=== PATIENT | female | born 1980 | race Caucasian/White ===

== ENCOUNTER 2017-04-08 14:48 | Emergency (ER) | payer MEDICAID ==
[~2017-04-08] VITALS: Ht 167.6 cm; Wt 78.5 kg
[2017-04-08] MEDS ORDERED: BENAZEPRIL HCL10 MG ORAL (15:01)
[2017-04-08] MEDS ORDERED: METFORMIN HCL1000 M1 ORAL (15:01)
[2017-04-08] MEDS ORDERED: LORATADINE10 M3 PO (15:01)
[2017-04-08] MEDS ORDERED: GLIPIZIDE5 MG ORAL (15:01)
[2017-04-08] MEDS ORDERED: LANTUS SOL100 UNIT/1 SUBQ (15:01)
[2017-04-08] MEDS ORDERED: ASPIRIN81 MG ORAL (15:01)
[2017-04-08] MEDS ORDERED: PRAVASTATIN SOD20 M1 ORAL (15:01)
[2017-04-08] MEDS ORDERED: DAILY VITE1 EACH ORAL (15:01)
[2017-04-08 15:27] LABS: APPEARANCE,URINE CLOUDY; KETONES,URINE 1+ (NEGATIVE); LEUKOCYTE ESTERASE ,URINE 3+ (NEGATIVE); NITRITE,URINE POSITIVE (NEGATIVE); PH,URINE 6 (4.5-8.0); PROTEIN,URINE 2+ (NEGATIVE); UROBILINOGEN,URINE NORMAL MG/DL (0.0-1.0)
[2017-04-08] MEDS ORDERED: CIPROFLOXACIN500 M2 ORAL (15:41)
[2017-04-08 15:44] LABS: BACTERIA,URINE MODERATE /HPF; RBC,URINE TNTC /HPF (0 - 2); SQUAMOUS EPITHELIAL CELL,UR OCCASIONAL /LPF (NONE/OCC); WBC,URINE TNTC /HPF (0 - 2)
[2017-04-08] MEDS ORDERED: Bactrim DS (160mg/800mg) tab ORAL ONE (15:45)
[2017-04-08 16:00] VITALS: BP 129/79
--- NOTE | 2017-04-08 16:17 | Emergency Room Report ---
History of Present Illness General Chief Complaint: Nausea Source: Patient Present Illness HPI 36YOF with 2-3 days dysuria, polyuria and left flank pain Mild nausea without vomiting No fever/chills or diarrhea History of DM, HTN No sick contacts Allergies: Coded Allergies: No Known Allergies (Unverified , 04/08/17) Patient History Past Medical History: DM, HTN Past Surgical History: none Pertinent Family History: none Social History: Denies: smoking, alcohol use, drug use Now: No Immunizations: UTD Reviewed Nursing Documentation: PMH: Agreed, PSxH: Agreed Nursing Documentation-PMH Past Medical History: No History, Except For Hx Diabetes: Yes Review of Systems All Other Systems: negative except mentioned in HPI Physical Exam Vital Signs Date Time Temp Pulse Resp B/P (MAP) Pulse Ox O2 Delivery O2 Flow Rate FiO2 04/08/17 14:50 97.9 102 20 131/81 97 Room Air Sp02 EP Interpretation: reviewed, normal General Appearance: normal inspection, well appearing, no apparent distress, alert, GCS 15, non-toxic Head: normocephalic, atraumatic Eyes: bilateral eye PERRL, bilateral eye EOMI ENT: normal ENT inspection, hearing grossly normal, normal pharynx, no angioedema, normal voice, TMs + canals normal, uvula midline, moist mucus membranes Neck: normal inspection, full range of motion, supple, thyroid normal, no meningismus, no bony tend Respiratory: normal inspection, lungs clear, normal breath sounds, no rhonchi, no respiratory distress, no retraction, no accessory muscle use, no wheezing, speaking full sentences Cardiovascular #1: regular rate, rhythm, no edema, no JVD, normal capillary refill Gastrointestinal: normal inspection, normal bowel sounds, non tender, soft, no mass, no peritonitis, non-distended, no guarding, no hernia, no pulsatile mass Genitourinary: CVA tenderness (L), other - Very mild left CVAT Musculoskeletal: normal inspection, back normal, normal range of motion, no calf tenderness, pelvis stable, Bradley's Sign negative Neurologic: normal inspection, alert, oriented x3, responsive, 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, motor strength/tone normal, cerebellar normal, normal gait, speech normal Psychiatric: normal inspection, judgement/insight normal, mood/affect normal, no suicidal/homicidal ideation, no delusions Skin: normal inspection, normal color, no rash Lymphatic: normal inspection, no adenopathy Medical Decision Making Diagnostic Impression: Primary Impression: Pyelonephritis ER Course Urine preg neg Nitrite-positive UTI Mild left CVAT however well appearing, stable vitals, tolerating PO in ED after zofran, non-septic appearing Can be treated outpatient for likely acute pyelo Understands to return for worsening symptoms, unable to take PO Abx ER course: Patient has remained stable during ED stay. Patient is to be discharged to home. Prescriptions given are Cipro Patient is instructed to follow up with their primary care doctor within 5 days. Strict return precautions discussed with patient such as fever, chills, worsening/severe pain, nausea, vomiting, which may indicate severe illness. Patient verbalizes understanding and agrees with plan. Please note that this Emergency Department Report was dictated using [employer] pairer technology software, occasionally this can lead to erroneous entry secondary to interpretation by the dictation equipment Last Vital Signs Date Time Temp Pulse Resp B/P (MAP) Pulse Ox O2 Delivery O2 Flow Rate FiO2 04/08/17 16:00 97.9 97 20 129/79 97 Room Air Status: improved Disposition: HOME, SELF-CARE Condition: Improved Scripts Ciprofloxacin Hcl* (CIPROFLOXACIN HCL*) 500 Mg Tablet 500 MG ORAL Q12H for 7 Days, #14 TAB 0 Refills Prov: JOCE HERNANDEZ M.D. 04/08/17 Referrals: NON PHYSICIAN (PCP) Patient Instructions: Dysuria JOCE HERNANDEZ M.D. Apr 08, 2017 16:17
== END 2017-04-08 16:00 | disposition home or self-care (01) ==
LOC: EMR 15:05
DX: N12 Tubulo-interstitial nephritis, not specified as acute or chronic (principal); E11.9 Type 2 diabetes mellitus without complications; I10 Essential (primary) hypertension
CPT/HCPCS: 81003; 81025; 87086; 87181; 99283

== ENCOUNTER 2017-05-21 16:50 | Emergency (ER) | payer MEDICAID ==
[~2017-05-21] VITALS: Ht 167.6 cm; Wt 79.4 kg
[~2017-05-21 16:50] MED LIST: ASPIRIN81 MG ORAL; BENAZEPRIL HCL10 MG ORAL; CIPROFLOXACIN500 M2 ORAL; DAILY VITE1 EACH ORAL; GLIPIZIDE5 MG ORAL; LANTUS SOL100 UNIT/1 SUBQ; LORATADINE10 M3 PO; METFORMIN HCL1000 M1 ORAL; PRAVASTATIN SOD20 M1 ORAL
[2017-05-21 17:10] VITALS: BP 118/68
[2017-05-21] MEDS ORDERED: Ketorolac 60mg Inj IM ONE (17:30)
[2017-05-21 17:35] VITALS: BP 118/68
--- NOTE | 2017-05-21 18:16 | Emergency Room Report ---
History of Present Illness General Chief Complaint: Chest Pain Source: Patient Present Illness HPI 36-year-old female walks in with chest pain Had chest pain for 2 weeks, worse with movement, activity States chest pain his upper left chest. Nonradiating, no associated cough, fever chills. Pain not worse with inspiration History of HTN, DM No history of PE, DVT not on control No recent immobilization, surgery Went to outside ER 4 days ago Has results: Negative CXR, labwork and troponin also negative Was given Rx Motrin for costochondritis Patient went to [facility] yesterday Was given nitro for pain Took a couple times without relief of pain but had "really bad dizziness". Allergies: Coded Allergies: No Known Allergies (Unverified , 04/08/17) Patient History Past Medical History: DM, HTN Past Surgical History: none Pertinent Family History: none Social History: Denies: smoking, alcohol use, drug use Now: No Immunizations: UTD Reviewed Nursing Documentation: PMH: Agreed, PSxH: Agreed Nursing Documentation-PMH Past Medical History: No History, Except For Hx Diabetes: Yes Review of Systems All Other Systems: negative except mentioned in HPI Physical Exam Vital Signs Date Time Temp Pulse Resp B/P (MAP) Pulse Ox O2 Delivery O2 Flow Rate FiO2 05/21/17 16:59 97.5 82 18 126/72 99 Room Air Sp02 EP Interpretation: reviewed, normal General Appearance: normal inspection, well appearing, no apparent distress, alert, GCS 15, non-toxic Head: normocephalic, atraumatic Eyes: bilateral eye PERRL, bilateral eye EOMI ENT: normal ENT inspection, hearing grossly normal, normal pharynx, no angioedema, normal voice, TMs + canals normal, uvula midline, moist mucus membranes Neck: normal inspection, full range of motion, supple, thyroid normal, no meningismus, no bony tend Respiratory: normal inspection, lungs clear, normal breath sounds, no rhonchi, no respiratory distress, no retraction, no accessory muscle use, no wheezing, speaking full sentences, other - CP very reproducible, chest symmetrical Cardiovascular #1: regular rate, rhythm, no edema, no JVD, normal capillary refill Gastrointestinal: normal inspection, normal bowel sounds, non tender, soft, no mass, no peritonitis, non-distended, no guarding, no hernia, no pulsatile mass Genitourinary: no CVA tenderness Musculoskeletal: normal inspection, back normal, normal range of motion, no calf tenderness, pelvis stable, Bradley's Sign negative Neurologic: normal inspection, alert, oriented x3, responsive, director of sales marketing III-XII nml as tested, motor strength/tone normal, cerebellar normal, normal gait, speech normal Psychiatric: normal inspection, judgement/insight normal, mood/affect normal, no suicidal/homicidal ideation, no delusions Skin: normal inspection, normal color, no rash Lymphatic: normal inspection, no adenopathy Medical Decision Making Diagnostic Impression: Primary Impression: Costochondritis Additional Impression: Chest pain Qualified Codes: R07.9 - Chest pain, unspecified ER Course 36YOF with CP for 2 days VSS, Afebrile CP is reproducible, worse with movement Patient has 2x CAD risk factors, but had negative workup recently In addition, no improvement with nitro so also unlikely CAD/ACS Was given IM toradol here Advised STOP using nitro Fill Rx for motrin already has ER course: Patient has remained stable during ED stay. Disposition: Patient is to be discharged to home. Patient is instructed to follow up with their primary care doctor within 5 days. Strict return precautions discussed with patient such as fever, chills, worsening/severe pain, nausea, vomiting, which may indicate severe illness. Patient verbalizes understanding and agrees with plan. Please note that this Emergency Department Report was dictated using [email or web address] production field supervisor technology software, occasionally this can lead to erroneous entry secondary to interpretation by the dictation equipment Last Vital Signs Date Time Temp Pulse Resp B/P (MAP) Pulse Ox O2 Delivery O2 Flow Rate FiO2 05/21/17 17:10 97.5 84 18 118/68 99 Room Air Status: improved Disposition: HOME, SELF-CARE Condition: Improved Referrals: NON PHYSICIAN (PCP) Patient Instructions: Costochondritis, [id number] Additional Instructions: - STOP taking nitro for chest pain - Take 600mg motrin as prescribed by your doctor, 3x a day with food for chest pain JOCE HERNANDEZ M.D. May 21, 2017 18:16
--- NOTE | 2017-05-23 18:28 | Cardiology Report ---
APPROVED REPORT EKG Measurement Heart [id number] Normal sinus rhythm Possible Left atrial enlargement Borderline ECG
== END 2017-05-21 17:35 | disposition home or self-care (01) ==
LOC: EMR 16:59
DX: M94.0 Chondrocostal junction syndrome [Tietze] (principal); I10 Essential (primary) hypertension; E11.9 Type 2 diabetes mellitus without complications
CPT/HCPCS: 93005; 96372; 99283